=== PATIENT | male | born 1965 | race Caucasian/White ===

== ENCOUNTER 2016-05-30 14:03 | Emergency (ER) | payer OTHER | END 2016-05-30 14:07 | disposition home or self-care (01) | LOC: CFTX 14:03 | DX: S19.9XXA Unspecified injury of neck, initial encounter (principal); R06.2 Wheezing; Z91.010 Allergy to peanuts; V43.92XA Unspecified car occupant injured in collision with other type car in traffic accident, initial encounter | CPT/HCPCS: 99283 ==